=== PATIENT | female | born 1995 | race African-American/Black ===

== ENCOUNTER 2020-12-22 02:24 | Inpatient (IN) | payer SELFPAY ==
[2020-12-22] MEDS ORDERED: Acetaminophen 325 MG TAB PO PRN (02:32)
[2020-12-22] MEDS ORDERED: Senokot S 8.6-50 MG TAB PO PRN (02:32)
[2020-12-22] MEDS ORDERED: Calcium Carbonate 500 MG ChewTAB PO PRN (02:32)
[2020-12-22] MEDS ORDERED: Ondansetron PF 4 MG/2 ML Vial IVP PRN (02:32)
[2020-12-22 02:33] VITALS: BMI 25.2
[2020-12-22] MEDS: Nicotine 14 MG PATCH TD SCH (03:10)
[2020-12-22 06:19] LABS: #Basophils 0.1 10x3/uL (0.0-0.2); #Eosinphils 0.2 10x3/uL (0.0-0.5); #Monocytes 0.8 10x3/uL (0.0-1.1); #Neutrophils 4.8 10x3/uL (1.5-8.4); %Basophils 0.6 % (0.0-2.0); %Eosinophils 2.4 % (0.0-6.0); %Lymphocytes 28.4 % (18.0-47.0); %Monocytes 10.1 % (0.0-10.0); Hemoglobin 12.3 g/dL (12.0-15.5); Mean Corpuscular HGB CONC 33.9 g/dL (32.0-36.0); Mean Corpuscular Hemoglobin 31.4 pg (27.0-33.0); Mean Corpuscular Volume 92.6 fl (81.6-98.3); Mean Platelet Volume 9.9 fl (7.4-10.4); Platelet Count 259 10x3/uL (150-450); RBC Distribution Width 11.4 % (11.5-14.5); Red Blood Cell (RBC) Count 3.92 10x6/uL (3.90-5.03); White Blood Cell (WBC) Count 8.2 10x3/uL (3.5-10.5)
[2020-12-22 06:23] LABS: Anion Gap 12 mmol/L (10-20); BUN (Urea Nitrogen) 8 mg/dL (7.0-18.7); Calc. Creatinine Clearance 114 mL/min (70-130); Calcium 8.8 mg/dL (7.8-10.44); Carbon Dioxide 24 mmol/L (22-29); Chloride 107 mmol/L (98-107); Glucose 103 mg/dL (70-105); Potassium 3.9 mmol/L (3.5-5.1); Sodium 139 mmol/L (136-145)
[2020-12-22] MEDS: cefTRIAXone\\ROCEPHIN 1 GM in Sodium Chloride 0.9% 100 ML IVPB SCH (09:03)
[2020-12-22] MEDS: Saccharomyces boulardii 250 MG CAP PO SCH (09:04)
[2020-12-22] MEDS: HYDROcodone/Acetaminophen 5/325 mg Tablet PO PRN ×4 (09:04→23:53)
[2020-12-22] MEDS: Enoxaparin Sodium 40 MG/0.4 ML SYRINGE SC SCH (09:05)
[2020-12-22 09:31] LABS: Hemoglobin A1c 4.9 % (4.0-6.0)
[2020-12-22] MEDS: diphenhydrAMINE 25 MG CAP PO PRN ×2 (12:33→22:04)
[2020-12-22] MEDS: Vancomycin HCl 1.25 GM in Sodium Chloride 0.9% 250 ML 250 ML IVPB SCH ×2 (12:35→22:18)
[2020-12-22] MEDS: Mupirocin 2% Ointment 22 GM Tube TOP SCH (22:05)
[2020-12-22] MEDS: Vancomycin HCl 750 MG in Sodium Chloride 0.9% 250 ML 250 ML IVPB SCH (22:13)
[2020-12-22] MEDS: Vancomycin HCl 500 MG in Sodium Chloride 0.9% 100 ML IVPB SCH (23:47)
[2020-12-23] MEDS: Nicotine 14 MG PATCH TD SCH (03:05)
[2020-12-23] MEDS: HYDROcodone/Acetaminophen 5/325 mg Tablet PO PRN ×4 (05:05→21:20)
[2020-12-23 06:23] LABS: HIV (1/2) Antibody/Antigen Non-Reactive (NonReactive); HIV 1/2 INDEX 0.14 S/CO (<1.00)
[2020-12-23] MEDS ORDERED: Eucerin (Mineral Oil/Petrolatum,White) 30 gm Jar TOP PRN (08:08)
[2020-12-23] MEDS ORDERED: Cepastat Lozenges 1 LOZ PO PRN (08:08)
[2020-12-23] MEDS ORDERED: Zolpidem Tartrate 5 MG TAB PO PRN (08:08)
[2020-12-23] MEDS ORDERED: Loperamide HCl 2 MG CAP PO PRN (08:08)
[2020-12-23] MEDS ORDERED: GUAIFENESIN SF SOLN 200 MG/10 ML UDCUP PO PRN (08:08)
[2020-12-23] MEDS ORDERED: hydrALAZINE 20 MG/ML VIAL SLOW IVP PRN (08:08)
[2020-12-23 08:10] LABS: Vancomycin, Trough 11.2 ug/mL
[2020-12-23] MEDS: Saccharomyces boulardii 250 MG CAP PO SCH (08:24)
[2020-12-23] MEDS: cefTRIAXone\\ROCEPHIN 1 GM in Sodium Chloride 0.9% 100 ML IVPB SCH (08:24)
[2020-12-23] MEDS: Mupirocin 2% Ointment 22 GM Tube TOP SCH ×3 (08:25→21:08)
[2020-12-23] MEDS: Enoxaparin Sodium 40 MG/0.4 ML SYRINGE SC SCH (08:25)
[2020-12-23 10:58] LABS: Complement-C4 42.9 mg/dL (15-57)
[2020-12-23] MEDS: diphenhydrAMINE 25 MG CAP PO PRN ×2 (11:20→21:09)
[2020-12-23] MEDS: Vancomycin HCl 750 MG in Sodium Chloride 0.9% 250 ML 250 ML IVPB SCH (11:21)
[2020-12-23] MEDS ORDERED: Dextrose 5 %-0.45 % NaCl 1,000 ML IV SCH (11:45)
[2020-12-23] MEDS: Vancomycin HCl 500 MG in Sodium Chloride 0.9% 100 ML IVPB SCH ×2 (12:30→22:19)
[2020-12-23] MEDS ORDERED: Bacitracin 1 PK ONE (15:30)
[2020-12-23] MEDS ORDERED: Lidocaine 1% w/Epinephrine 1:100K 20 ML VIAL ONE (15:31)
[2020-12-23] MEDS ORDERED: PROPOFOL 20 ML ONE ×2 (15:39→16:12)
[2020-12-23] MEDS ORDERED: Fentanyl 100 MCG/2 ML VIAL ONE (15:39)
[2020-12-23] MEDS ORDERED: Lidocaine 1% PF 5 ML VIAL ONE (15:40)
[2020-12-23] MEDS ORDERED: Promethazine HCl 25 MG/ML VIAL IM PRN (16:25)
[2020-12-23] MEDS ORDERED: Promethazine HCl 25 MG/ML VIAL SLOW IVP PRN (16:25)
[2020-12-23] MEDS ORDERED: Ondansetron HCl/PF 4 MG/2 ML Vial IVP PRN (16:25)
[2020-12-23] MEDS: Vancomycin HCl 1 GM in Sodium Chloride 0.9% 250 ML 250 ML IVPB SCH (21:08)
[2020-12-24] MEDS: Nicotine 14 MG PATCH TD SCH (03:21)
[2020-12-24] MEDS: cefTRIAXone\\ROCEPHIN 1 GM in Sodium Chloride 0.9% 100 ML IVPB SCH (09:06)
[2020-12-24] MEDS: Saccharomyces boulardii 250 MG CAP PO SCH (09:08)
[2020-12-24] MEDS: Mupirocin 2% Ointment 22 GM Tube TOP SCH ×3 (09:08→20:45)
[2020-12-24] MEDS: Enoxaparin Sodium 40 MG/0.4 ML SYRINGE SC SCH (09:08)
[2020-12-24] MEDS: Vancomycin HCl 1 GM in Sodium Chloride 0.9% 250 ML 250 ML IVPB SCH (11:28)
[2020-12-24] MEDS: diphenhydrAMINE 25 MG CAP PO PRN (11:28)
[2020-12-24] MEDS: Vancomycin HCl 500 MG in Sodium Chloride 0.9% 100 ML IVPB SCH (12:35)
[2020-12-25] MEDS ORDERED: VANCOMYCIN 1.25 GM, Admixture Fee 1 EACH in Sodium Chloride 0.9% 250 ML 250 ML IVPB SCH (02:00)
[2020-12-25] MEDS: Nicotine 14 MG PATCH TD SCH (04:13)
[2020-12-25 06:38] LABS: BUN (Urea Nitrogen) 7 mg/dL (7.0-18.7); Calc. Creatinine Clearance 132 mL/min (70-130)
[2020-12-25 07:53] VITALS: BP 104/67; TEMP 98.3
[2020-12-25] MEDS: Saccharomyces boulardii 250 MG CAP PO SCH (09:28)
[2020-12-25] MEDS: Enoxaparin Sodium 40 MG/0.4 ML SYRINGE SC SCH (09:28)
[2020-12-25] MEDS: Mupirocin 2% Ointment 22 GM Tube TOP SCH (09:29)
[2020-12-25] MEDS: cefTRIAXone\\ROCEPHIN 1 GM in Sodium Chloride 0.9% 100 ML IVPB SCH (09:29)
[2020-12-28 11:13] LABS: Fungus Stain Final report (.)
[2021-01-22 12:38] LABS: Fungus Culture Final report (.)
== END 2020-12-25 11:19 | disposition home or self-care (01) | DRG 155 ==
LOC: CSHTELE 02:24 → OBSVTOIN 02:32
PROVIDERS: ADMIT Student in an Organized Health Care Education/Training Program; ATTEND Internal Medicine
PROC: 09900ZZ Drainage of Right External Ear, Open Approach (ICD-10-PCS; principal; 2020-12-23)
DX: H60.01 Abscess of right external ear (principal); L03.221 Cellulitis of neck; L03.211 Cellulitis of face; H60.11 Cellulitis of right external ear; E87.6 Hypokalemia; K21.9 Gastro-esophageal reflux disease without esophagitis; F12.10 Cannabis abuse, uncomplicated; F17.210 Nicotine dependence, cigarettes, uncomplicated; L27.0 Generalized skin eruption due to drugs and medicaments taken internally; T36.95XA Adverse effect of unspecified systemic antibiotic, initial encounter; Z78.9 Other specified health status; Z91.018 Allergy to other foods
CPT/HCPCS: 36415; 80048; 80202; 82565; 83036; 84520; 85025; 86160; 87070; 87076; 87102; 87205; 87206; 87389; J0696; J2704; J3010; J3370; J3490; J7050; Q0163